=== PATIENT | female | born 1965 | race Caucasian/White ===

== ENCOUNTER 2017-09-30 09:26 | Emergency (ER) | payer OTHER ==
[2017-09-30] MEDS: LORAZEPAM 0.5 MG TAB PO (10:08)
[2017-09-30] MEDS: DEXAMETHASONE 10 MG/ML 1 ML INJ IM (10:08)
[2017-09-30] MEDS: KETOROLAC 60 MG INJ IM ×2 (10:08→10:18)
[2017-09-30] MEDS: HYDROCODONE/APAP (5/325) TAB PO (10:26)
[2017-09-30] MEDS: ONDANSETRON (ODT) 4 MG TAB ODT (10:26)
== END 2017-09-30 11:12 | disposition home or self-care (01) ==
LOC: FTE 09:26
DX: M54.2 Cervicalgia (principal); M54.9 Dorsalgia, unspecified
CPT/HCPCS: 96372; 99284-25